=== PATIENT | female | born 1970 | race Caucasian/White ===

== ENCOUNTER 2022-09-02 10:13 | Day surgery (SDC) | payer OTHER ==
[~2022-09-02] VITALS: Ht 157.5 cm; Wt 80.9 kg
[~2022-09-02 10:13] MED LIST: ACETAMINOPHEN 1000MG 100ML IV BAG As Ordered ONE; CYCL-707 PO; IBUP200C25 PO; LIDOCAINE W/EPINEPHRINE 1% 20ML VIAL As Ordered ONE; MIDAZOLAM INJ 2MG/2ML VIAL As Ordered ONE; OMEP40CA4 PO; ONDANSETRON 4MG 2ML VIAL As Ordered ONE; fentaNYL 100 MCG/2 ML INJECTION As Ordered ONE; propofoL 200 MG/20 ML VIAL As Ordered ONE
[2022-09-02] MEDS ORDERED: LIDOCAINE 2% 100MG/5ML SDV (FOR ANES.) As Ordered ONE (10:14)
[2022-09-02] MEDS ORDERED: SUGAMMADEX SODIUM 500 MG/5 ML VIAL (BRIDION) As Ordered ONE (10:15)
[2022-09-02] MEDS ORDERED: ROCURONIUM BROMIDE 50MG/5ML VIAL As Ordered ONE (10:15)
[2022-09-02] MEDS ORDERED: LR 1,000 ML IV SCH ×2 (10:40→12:25)
[2022-09-02] MEDS ORDERED: fentaNYL 100 MCG/2 ML INJECTION As Ordered ONE (11:59)
[2022-09-02] MEDS ORDERED: propofoL 200 MG/20 ML VIAL As Ordered ONE (12:06)
[2022-09-02] MEDS ORDERED: LABETALOL 100MG/20ML VIAL As Ordered ONE (12:08)
[2022-09-02] MEDS ORDERED: ONDANSETRON 4MG 2ML VIAL IV PRN (12:25)
[2022-09-02] MEDS ORDERED: fentaNYL 100 MCG/2 ML INJECTION IV PRN (12:25)
[2022-09-02] MEDS ORDERED: oxyCODONE 5MG TAB PO PRN (12:25)
[2022-09-02] MEDS: HYDROMORPHONE HCL 0.5 MG/ 0.5 ML SYRINGE IV PRN ×2 (13:08→13:15)
[2022-09-02 14:28] VITALS: BP 141/72
== END 2022-09-02 14:53 | disposition home or self-care (01) ==
LOC: M SDC 10:13
PROVIDERS: ATTEND Dentist Oral and Maxillofacial Surgery
DX: K02.9 Dental caries, unspecified (principal); Z88.2 Allergy status to sulfonamides; K21.9 Gastro-esophageal reflux disease without esophagitis; Z79.899 Other long term (current) drug therapy
CPT/HCPCS: 88300; D7210; D9223; J0131; J1100; J1170; J2250; J2405; J3010